=== PATIENT | female | born 1955 | race Hispanic/Latino ===

== ENCOUNTER 2020-10-25 11:00 | Outpatient (RCR) | payer SELFPAY | END 2020-10-30 | LOC: PT 11:00 | PROVIDERS: ATTEND Specialist | DX: M17.11 Unilateral primary osteoarthritis, right knee (principal) ==

== ENCOUNTER 2020-11-15 13:00 | Outpatient (RCR) | payer SELFPAY | END 2020-11-29 | LOC: PT 13:00 | PROVIDERS: ATTEND Specialist | DX: M17.11 Unilateral primary osteoarthritis, right knee (principal) | CPT/HCPCS: 97139 ==